=== PATIENT | male | born 1930 | race Caucasian/White ===

== ENCOUNTER 2017-03-07 03:29 | Observation (INO) ==
[2017-03-07] MEDS ORDERED: Aspirin 81 MG TAB.CHEW PO ONE (03:34)
--- NOTE | 2017-03-07 03:51 | Emergency Department Note ---
Disposition Clinical Impression: Chest pain Qualifiers: Chest pain type: precordial pain Qualified Code(s): R07.2 - Precordial pain Disposition: Admitted As Inpatient Condition: Good Referrals: Dixie Borrero CNP [Primary Care Provider] - General Adult HPI - General Chief complaint: ED Chest Pain Stated complaint: chest tightness Time Seen by Provider: 03/07/17 03:34 Source: patient, EMS - History of Present Illness HPI Narrative: Patient presents to the emergency department for evaluation of discomfort in the neck and thoracic back. He states that he felt well when he went to bed last night. He awoke prior to arrival with the bladder discomfort is mid back and his bilateral anterior neck. He denies actual chest pain. He states that the pain seems to get worse with certain movements and deep respirations. He denies recent prolonged immobilization. He denies lower extremity edema or calf discomfort. He denies shortness of breath nausea vomiting or diaphoresis. He denies headache visual changes confusion speech changes motor or sensory deficits. Patient apparently had syncope in August. He underwent nuclear stress testing at that time as well as Holter monitor and echocardiogram without abnormalities found. I reviewed his stress test results which were unremarkable. Pain Scale: 8 - Related Data Home Medications Medication Instructions Recorded Confirmed Metoprolol [Lopressor] 50 mg PO DAILY 07/07/16 03/07/17 Terazosin [Hytrin] 10 mg PO HS 07/07/16 03/07/17 Aspirin 81 mg PO DAILY 03/07/17 03/07/17 Cholecalciferol (D-3) [Vitamin D] 1,000 unit PO DAILY 03/07/17 03/07/17 Saw [place] Fruit [Saw [place]] 450 mg PO HS 03/07/17 03/07/17 Simvastatin [Zocor] 20 mg PO HS 03/07/17 03/07/17 amLODIPine [Norvasc] 2.5 mg PO DAILY 03/07/17 03/07/17 Allergies Allergy/AdvReac Type Severity Reaction Status Date / Time No Known Allergies Allergy Verified 07/07/16 14:12 Constitutional: Denies: fever, chills, weakness Eyes: Denies: eye pain, vision change ENT ED: Denies: ear pain, throat pain, dysphagia Cardiovascular: Denies: chest pain, palpitations, dyspnea on exertion, orthopnea , edema, syncope Respiratory: Denies: cough, dyspnea, wheezes, hemoptysis Gastrointestinal: Denies: abdominal pain, nausea, vomiting, diarrhea Genitourinary: Denies: urgency, dysuria, frequency, hematuria Musculoskeletal: Reports: as per HPI. Denies: joint swelling Integumentary: Denies: rash Neurological: Denies: headache, weakness, numbness, paresthesias, confusion Endocrine: Denies: fatigue Past Medical History - Past Medical History Medical history: Reports: cancer, hyperlipidemia, hypertension, other Surgical history: Reports: appendectomy, other Psychiatric history: Reports: no psych history - Social History Smoking Status: Never smoker Smokeless Tobacco Status: No Alcohol use: Reports: none Drug use: Reports: none Physical Exam - General Limitations: no limitations General appearance: alert, in no apparent distress (Patient resting comfortably interactive alert and appropriately cooperative and quite pleasant) - Head Head exam: atraumatic, normocephalic - Eye Eye exam: Present: normal appearance. Absent: scleral icterus - ENT ENT exam: normal exam, normal oropharynx, mucous membranes moist - Neck Neck exam: Present: normal inspection, full ROM, trachea midline. Absent: tenderness, meningismus, lymphadenopathy, thyromegaly - Respiratory Respiratory exam: Present: normal lung sounds bilaterally - Cardiovascular Cardiovascular exam: Present: regular rate, normal rhythm, normal heart sounds - Abdominal Exam Abdominal exam: Present: soft, Non-Tender, normal bowel sounds - Extremities Exam Extremities exam: Present: normal inspection, full ROM, normal capillary refill. Absent: tenderness, pedal edema, joint swelling, calf tenderness - Expanded Lower Extremity Exam Neurovascular/Tendon exam: Present: normal capillary refill. Absent: pulse deficit, motor deficit, sensory deficit, extremity cold to touch, pallor - Back Exam Back exam: Present: normal inspection, full ROM. Absent: tenderness, CVA tenderness (R), CVA tenderness (L), paraspinal tenderness, vertebral tenderness - Neurological Exam Neurological exam: Present: alert, oriented X3, CN II-XII intact - Psychiatric Psychiatric exam: Present: normal affect, normal mood - Skin Skin exam: Present: warm, dry, intact Course Vital Signs Temperature 97.7 F 03/07/17 03:34 Pulse Rate 70 03/07/17 03:34 Respiratory Rate 18 03/07/17 03:34 Blood Pressure 137/71 03/07/17 03:34 O2 Sat by Pulse Oximetry 96 03/07/17 03:34 Temperature 97.7 F 03/07/17 03:43 Pulse Rate 72 03/07/17 06:54 Respiratory Rate 18 03/07/17 06:54 Blood Pressure 130/65 03/07/17 06:54 O2 Sat by Pulse Oximetry 98 03/07/17 06:54 Oxygen Delivery Oxygen Delivery Nasal Cannula Medical Decision Making - MDM Narrative Medical decision making narrative: Time 0 6:30: Patient states he feels somewhat improved now feels a nondescript soreness across his left anterior chest. Patient be admitted to the hospitalist service for serial cardiac enzymes and further evaluation. I discussed the case with Dr. Cheek [phone]. - Lab Data Lab results reviewed: Yes I reviewed the patient's lab results. Result diagrams: 03/07/17 03:40 03/07/17 03:40 Lab Results 03/07/17 03/07/17 03/07/17 Range/Units 03:40 03:40 03:40 WBC (4.3-11.1) K/mcL RBC (4.19-5.50) M/mcL Hgb (12.9-16.9) g/dL Hct (37.5-50.1) % MCV (83.0-100.0) fL MCH (28.0-33.3) pg MCHC (31.6-35.5) g/dL RDW (11.5-14.5) % Plt Count (140-400) K/mcL MPV (9.4-12.4) fL Immature Gran % (0-4) % Seg Neutrophils % % Lymphocytes % % Monocytes % % Eosinophils % % Basophils % % Neutrophils # (1.6-8.9) K/mcL Lymphocytes # (0.6-4.6) K/mcL Monocytes # (0.0-1.3) K/mcL Eosinophils # (0.0-0.6) K/mcL Basophils # (0.0-0.2) K/mcL PT 11.1 (9.4-12.1) Seconds INR 1.0 APTT 29.7 (26.0-36.0) Seconds D-Dimer 653 H (0-500) ng/mLFEU Sodium (136-145) mEq/L Potassium (3.5-4.5) mEq/L Chloride (98-109) mEq/L Carbon Dioxide (19-29) mEq/L BUN (8-26) mg/dL Creatinine (0.72-1.25) mg/dL Est GFR ( Amer) (> 60) Est GFR (Non-Af Amer) (> 60) BUN/Creatinine Ratio (6-26) Glucose (70-99) mg/dL Calculated Osmolality (280-300) Calcium (8.6-10.8) mg/dL Troponin I (0-0.03) ng/mL B-Natriuretic Peptide 108 H (0-100) pg/mL 03/07/17 03/07/17 03/07/17 Range/Units 03:40 03:40 03:40 WBC 9.1 (4.3-11.1) K/mcL RBC 3.72 L (4.19-5.50) M/mcL Hgb 12.6 L (12.9-16.9) g/dL Hct 36.0 L (37.5-50.1) % MCV 96.8 (83.0-100.0) fL MCH 33.9 H (28.0-33.3) pg MCHC 35.0 (31.6-35.5) g/dL RDW 12.7 (11.5-14.5) % Plt Count 133 L (140-400) K/mcL MPV 9.3 L (9.4-12.4) fL Immature Gran % 0.2 (0-4) % Seg Neutrophils % 72.2 % Lymphocytes % 12.7 % Monocytes % 11.4 % Eosinophils % 3.3 % Basophils % 0.2 % Neutrophils # 6.6 (1.6-8.9) K/mcL Lymphocytes # 1.2 (0.6-4.6) K/mcL Monocytes # 1.0 (0.0-1.3) K/mcL Eosinophils # 0.3 (0.0-0.6) K/mcL Basophils # 0.0 (0.0-0.2) K/mcL PT (9.4-12.1) Seconds INR APTT (26.0-36.0) Seconds D-Dimer (0-500) ng/mLFEU Sodium 141 (136-145) mEq/L Potassium 4.0 (3.5-4.5) mEq/L Chloride 108 (98-109) mEq/L Carbon Dioxide 21 (19-29) mEq/L BUN 26 (8-26) mg/dL Creatinine 1.42 H (0.72-1.25) mg/dL Est GFR ( Amer) 57 L (> 60) Est GFR (Non-Af Amer) 47 L (> 60) BUN/Creatinine Ratio 18 (6-26) Glucose 104 H (70-99) mg/dL Calculated Osmolality 297 (280-300) Calcium 8.8 (8.6-10.8) mg/dL Troponin I 0.01 (0-0.03) ng/mL B-Natriuretic Peptide (0-100) pg/mL ITS Impressions Chest X-Ray 03/07/17 03:34 IMPRESSION: Left lower lobe atelectasis versus pneumonia. D/ / Jose Guzman MD / Jose Guzman MD Interpreting Provider: Jose Guzman MD Chest CTA 03/07/17 04:20 IMPRESSION: 1. No definite scan evidence for pulmonary embolus. 2. Coronary artery disease. 3. Bilateral thyroid nodules. Thyroid ultrasound is recommended unless the patient has significant comorbidities or a limited life expectancy. D/ / Jose Guzman MD / Jose Guzman MD Interpreting Provider: Jose Guzman MD - Radiology Data Radiology results reviewed: Yes I reviewed the patient's radiology results. - EKG Data EKG #1 EKG attestation: Yes I reviewed and interpreted this EKG. Rhythm: NSR (Normal sinus rhythm with rate of 68, no acute ST segment or T-wave changes.)
[2017-03-07 03:52] LABS: Basophils % 0.2 %; Eosinophils # 0.3 K/mcL (0.0-0.6); Eosinophils % 3.3 %; Hemoglobin 12.6 g/dL (12.9-16.9); Immature Granulocytes % 0.2 % (0-4); Lymphocytes # 1.2 K/mcL (0.6-4.6); Lymphocytes % 12.7 %; Mean Corpuscular Hemoglobin 33.9 pg (28.0-33.3); Mean Corpuscular Volume 96.8 fL (83.0-100.0); Mean Platelet Volume 9.3 fL (9.4-12.4); Monocytes % 11.4 %; Neutrophils # 6.6 K/mcL (1.6-8.9); Platelet Count 133 K/mcL (140-400); Red Blood Count 3.72 M/mcL (4.19-5.50); Red Cell Distribution Width 12.7 % (11.5-14.5); Segmented Neutrophils % 72.2 %
[2017-03-07 04:07] LABS: Calcium 8.8 mg/dL (8.6-10.8)
[2017-03-07 04:13] LABS: Prothrombin Time 11.1 Seconds (9.4-12.1)
[2017-03-07 04:15] LABS: Activated Partial Thrombo Time 29.7 Seconds (26.0-36.0)
[2017-03-07] MEDS ORDERED: 0.9 % Sodium Chloride 1,000 ML IVC ONE (04:53)
[2017-03-07] MEDS ORDERED: Naloxone 0.4 MG/ML INJ IVP PRN (07:05)
[2017-03-07] MEDS ORDERED: Cholecalciferol (D-3) 1,000 UNIT TABLET PO SCH (09:00)
[2017-03-07] MEDS ORDERED: Aspirin 81 MG TAB.CHEW PO SCH (09:00)
[2017-03-07] MEDS ORDERED: amLODIPine 5 MG TABLET PO SCH (09:00)
[2017-03-07 09:30] LABS: Chol/HDL Ratio 3.4 (0-4.9); Magnesium 2.2 mg/dL (1.6-2.6); Phosphorous 3.1 mg/dL (2.3-4.7)
[2017-03-07 15:09] VITALS: BP 126/62
--- NOTE | 2017-03-07 15:19 | Internal Med History&Physical ---
Date of Encounter: 03/07/17 Time of Encounter: 14:45 Assessment and Plan (1) Neck pain Current visit: Yes Status: Acute The etiology is not obvious. Repeat cardiac enzymes were ordered through emergency room. Further workup will be done as needed. Internal Medicine - H&P: HPI Chief complaint: Neck pain Admitted From: Home Plans for Post Hospital Care: Home History of present illness: Mr. Roberts is a 87 year old male came to emergency room stating he had awakened approximately 2:30 AM with discomfort in his neck and upper back. He describes it initially as a sharp sensation that has now become more dull. He states the pain was slightly worse on inspiration. He states it was not present when he went to bed the previous night. He has done no unusual lifting or exercises etc. in the past 48 hours. He was evaluated in emergency room and admitted to [facility] floor for ongoing care needs. He states the pain is significantly improved at this time. He has not had previous similar episodes. He denies any URI symptoms onset in the past 2 days. Past Med Surg Social Fam HX - Past Medical History Medical history: cancer, hyperlipidemia, hypertension, other Psychiatric history: no psych history - Past Surgical History Surgical History: appendectomy, other - Social History Smoking Status: Never smoker Smokeless Tobacco Status: No Alcohol use: none Drug use: none Internal Medicine - H&P: Meds Metoprolol [Lopressor] 50 mg PO DAILY 07/07/16 [History] Terazosin [Hytrin] 10 mg PO HS 07/07/16 [History] Aspirin 81 mg PO DAILY 03/07/17 [History] Cholecalciferol (D-3) [Vitamin D] 1,000 unit PO DAILY 03/07/17 [History] Saw [place] Fruit [Saw [place]] 450 mg PO HS 03/07/17 [History] Simvastatin [Zocor] 20 mg PO HS 03/07/17 [History] amLODIPine [Norvasc] 2.5 mg PO DAILY 03/07/17 [History] Allergies No Known Allergies Allergy (Verified 07/07/16 14:12) All Systems PM: A 10-system review of systems was performed and is negative for pertinent findings except as documented above in the HPI. Review of systems: Gen.: His weight has increased from 78.471 kg at the June 2016 hospitalization to 80.739 kg now. Cardiovascular: He has history of hypertension but denies GA heart failure angina DVT or pulmonary embolus. He had a syncopal episode resulting in hospitalization at [facility] June 2016 with etiology not determined with certainty. Respiratory: He smoked for approximately 10 years in early adulthood. He denies known chronic lung disease. GI: He denies disorders of his liver gallbladder or exocrine pancreas : He has BPH and CKD stage III. 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 Denies other kidney or bladder disorders. Neurologic: He denies large distribution strokes or seizures. Endocrine: He has hyperlipidemia but denies diabetes or thyroid disease Hematology/oncology: He has anemia presumably from chronic kidney disease and aspirin use. He had skin cancer removed from his leg several years ago. 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 - Constitutional Vitals: Temp Pulse Resp BP Pulse Ox 97.8 F 59 16 126/62 97 03/07/17 15:08 03/07/17 15:08 03/07/17 15:08 03/07/17 15:08 03/07/17 15:08 Exam: Gen.: He is a well-developed well-nourished male who appears in no acute distress. HEENT: Head is atraumatic and normocephalic. Eyes: EOMI. There is no scleral icterus. Mouth: Mucosa is moist. Neck: Supple and nontender. There is no thyromegaly or adenopathy noted. Heart: Regular without murmurs gallops or ectopics Lungs: No wheezes or crackles are heard Abdomen: Soft and nontender. No masses or guarding were noted. Back: He has no tenderness over palpating the interscapular area or flank area. Extremities: There is no cyanosis edema or clubbing noted. Dorsalis pedis and posttibial pulses are 1-2 over 2 bilaterally. Neurologic: Mental status: He is talkative and a good historian. Cranial nerves : Smile is symmetric. Forehead wrinkles bilaterally. Tongue protrudes midline. EOMI. Motor: There is no pronator drift. Cerebellar: Finger to nose is intact bilaterally. Skin: Warm and dry Internal Med - H&P Results - Labs CBC & Chem 7: 03/07/17 03:40 03/07/17 03:40 Labs: Cardiac Enzymes 03/07/17 Range/Units 13:30 Troponin I 0.00 (0-0.03) ng/mL
--- NOTE | 2017-03-07 15:40 | Discharge Summary ---
Date of Encounter: 03/07/17 Time of Encounter: 14:45 - Discharge Diagnosis (1) Neck pain Priority: Primary Status: Acute (2) Thyroid nodule Priority: Secondary Status: Acute - Discharge Medications Home Medications: Metoprolol [Lopressor] 50 mg PO DAILY 07/07/16 [History] Terazosin [Hytrin] 10 mg PO HS 07/07/16 [History] Aspirin 81 mg PO DAILY 03/07/17 [History] Cholecalciferol (D-3) [Vitamin D] 1,000 unit PO DAILY 03/07/17 [History] Saw [place] Fruit [Saw [place]] 450 mg PO HS 03/07/17 [History] Simvastatin [Zocor] 20 mg PO HS 03/07/17 [History] amLODIPine [Norvasc] 2.5 mg PO DAILY 03/07/17 [History] Allergies/Adverse Reactions: Allergies No Known Allergies Allergy (Verified 07/07/16 14:12) Date of admission: 03/07/17 07:32 Primary care physician: Dixie Borrero CNP Consults: 03/07/17 08:34 Consult to Pastoral Services [CONS] Routine Comment: - Patient Status Disposition: Home, Self-Care Condition: Good Functional capacity at discharge: independent ambulation Overall status at discharge: patient is progressing back to baseline - Discharge Instructions Follow Up With: Dixie Borrero CNP [Primary Care Provider] - 1 week Forms: ED Satisfaction Letter - Diet and Activity Activity: resume usual activities as tolerated Diet: advance to your usual diet Hospital course: Mr. Roberts is a 87 year old male who came to emergency room stating he had awakened approximately 2:30 AM with discomfort in his neck and upper back. He describes it initially as a sharp sensation that has now become more dull. He states the pain was slightly worse on inspiration. He states it was not present when he went to bed the previous night. He has done no unusual lifting or exercises etc. in the past 48 hours. He was evaluated in emergency room and admitted to [facility] for ongoing care needs. Initial orders were written by the emergency room physician. I saw him on March 07 and performed a history and physical. Repeat cardiac enzymes showed no evidence of myocardial damage. When I saw him I did not think it was likely to be of myocardial ischemic origin. A chest CTA was done in the emergency room and showed no acute lung pathology. Discussed with the patient that the etiology of the pain was not obvious. I told him some components of his description were consistent with pleurisy. However I did not feel he should take NSAID medication because of his renal impairment. He reported at time of the history and physical the pain level was down to 2-3/10 from an original level of 8/10 at onset. He stated he felt stable for discharge home which I felt was reasonable. He will follow with his PCP Dixie Borrero CNP within 1 week. I told him to return to the emergency room if the pain worsened. I told him he should discuss with his PCP if further workup was needed for thyroid nodule seen on chest CT. - Time Spent with Patient Total time spent providing and/or coordinating discharge services: - Constitutional Vitals: Temp Pulse Resp BP Pulse Ox 97.8 F 59 16 126/62 97 03/07/17 15:08 03/07/17 15:08 03/07/17 15:08 03/07/17 15:08 03/07/17 15:08
--- NOTE | 2017-03-10 17:09 | Electrocardiograph Report ---
[address] [address] Test Date: 2017-03-07 Pat Name: Bill Roberts Department: [id number] Room: [facility] Gender: M Mail Officer: Derrek : 1930 Requested By: Vijay Youngblood Order Number: [id number] Reading MD: Tom Duval Measurements Intervals [place] Rate: 68 P: -39 IA: 134 QRS: -18 QRSD: 91 T: 40 QT: 380 QTc: 398 Interpretive Statements SINUS RHYTHM MINIMAL VOLTAGE CRITERIA FOR LVH, CONSIDER NORMAL VARIANT Electronically Signed On 03-10-2017 17:07:16 EDT by Tom Duval
== END 2017-03-07 16:10 | disposition home or self-care (01) ==
LOC: INPPIK 03:29 → EMEROOPIK 03:29 → INPPIK 07:39
PROVIDERS: ADMIT Internal Medicine; ATTEND Internal Medicine